=== PATIENT | female | born 1945 | race Caucasian/White ===

== ENCOUNTER → 2021-05-17 | Outpatient (CLI) | payer MEDICARE ==
[~2021-05-17] MED LIST: ESTR2 PO; Estradiol1 MG PO; MEDR5 PO; MULT50L PO; OMEP20ER PO; PROBIOTIC1 EAC1 PO; TRAZ50 PO
== END | disposition home or self-care (01) ==
LOC: LAB SHORT 12:00 → LAB 12:00
DX: L82.1 Other seborrheic keratosis (principal)
CPT/HCPCS: 88305

== ENCOUNTER → 2022-05-15 | Outpatient (CLI) | payer MEDICARE | END | disposition home or self-care (01) | LOC: LAB SHORT 10:55 → PLD 10:55 | DX: L82.1 Other seborrheic keratosis (principal) | CPT/HCPCS: 88305 ==